=== PATIENT | female | born 1990 | race African-American/Black ===

== ENCOUNTER 2018-03-05 03:52 | Inpatient (IN) | payer OTHER ==
[2018-03-05 04:20] VITALS: BMI 29.8
[2018-03-05] MEDS ORDERED: Lactated Ringer's 1,000 ML IV SCH (05:14)
[2018-03-05] MEDS ORDERED: Ondansetron HCl/PF 4 MG/2 ML Vial IVP PRN ×3 (05:14→13:48)
[2018-03-05] MEDS ORDERED: Promethazine HCl 25 MG/ML VIAL IM PRN ×2 (05:14→07:57)
[2018-03-05] MEDS ORDERED: Butorphanol Tartrate 1 MG/ML VIAL SLOW IVP PRN (05:14)
[2018-03-05] MEDS ORDERED: Acetaminophen 500 MG TAB PO PRN (05:14)
[2018-03-05] MEDS ORDERED: Lactated Ringer's 1,000 ML IV PRN (05:14)
[2018-03-05] MEDS ORDERED: Penicillin G Potassium 5 MILL.UNITS in Sodium Chloride 0.9% 100 ML IVPB SCH (05:30)
[2018-03-05] MEDS ORDERED: DISCONTINUE ALL PREVIOUS NARCOTICS FS SCH (06:15)
[2018-03-05] MEDS ORDERED: Bupivacaine 0.5% 20 ML, fentaNYL Citrate/PF 400 MCG in Sodium Chloride 0.9% 72 ML EPIDURAL SCH (06:15)
[2018-03-05 06:51] LABS: Hemoglobin 12.1 g/dL (12.0-16.0); Mean Corpuscular HGB CONC 34.5 g/dL (32.0-36.0); Mean Corpuscular Hemoglobin 32.6 pg (27.0-31.0); Mean Corpuscular Volume 94.4 fL (78.0-98.0); Mean Platelet Volume 7.7 fL (7.4-10.4); Platelet Count 190 thou/uL (130-400); RBC Distribution Width 12.4 % (11.5-14.5); Red Blood Cell (RBC) Count 3.71 mill/uL (4.20-5.40); White Blood Cell (WBC) Count 10.2 thou/uL (4.8-10.8)
[2018-03-05 06:57] LABS: Syphilis Antibody Nonreactive (Nonreactive); Syphilis Antibody Index 0.08 S/CO (<1.00 Non-Reactive)
[2018-03-05 07:25] LABS: HBSAg Index 0.15 S/CO (0-0.99); Hep B Surf Ag Non-Reactive S/CO (NonReactive)
[2018-03-05] MEDS ORDERED: diphenhydrAMINE 50 MG/ML VIAL IVP PRN (07:57)
[2018-03-05] MEDS ORDERED: Naloxone HCl 0.4 mg/ml Vial IVP PRN ×2 (07:57)
[2018-03-05] MEDS ORDERED: Lactated Ringer's 500 ML IV PRN (07:57)
[2018-03-05] MEDS ORDERED: ePHEDrine/0.9% NaCl/PF SYRINGE 50 mg/10 ml SLOW IVP PRN (07:57)
[2018-03-05] MEDS ORDERED: Acetaminophen 325 MG TAB PO PRN (07:57)
[2018-03-05] MEDS ORDERED: Eucerin (Mineral Oil/Petrolatum,White) 30 gm Jar TOP PRN (07:57)
[2018-03-05] MEDS ORDERED: Communication Order-Pharmacy FS SCH (08:00)
[2018-03-05] MEDS ORDERED: fentaNYL Citrate/PF 400 MCG, Bupivacaine 0.5% 20 ML in Sodium Chloride 0.9% 72 ML EPIDURAL SCH (08:00)
[2018-03-05] MEDS ORDERED: NS / Oxytocin 40 units/1000ml 1,000 ML ONE ×2 (09:14→12:16)
[2018-03-05] MEDS ORDERED: Lidocaine 1% (PF) 30 ML VIAL ONE (09:14)
[2018-03-05] MEDS ORDERED: Penicillin G 2.5 MILL.units 50 ML ONE (09:27)
[2018-03-05] MEDS ORDERED: Penicillin G Potassium 2.5 MILL.UNITS in Sodium Chloride 0.9% 50 ML IVPB SCH (09:30)
[2018-03-05] MEDS ORDERED: Lidocaine 2% PF Inj 2 ML VIAL ONE (11:11)
[2018-03-05] MEDS ORDERED: Bisacodyl 10 MG SUPP PR PRN (13:48)
[2018-03-05] MEDS ORDERED: Benzocaine/Menthol 20-0.5% 60 ML CAN TOP PRN (13:48)
[2018-03-05] MEDS ORDERED: Preparation H Ointment 28 GM TUBE PR PRN (13:48)
[2018-03-05] MEDS ORDERED: NS / Oxytocin 40 units/1000ml 1,000 ML IV SCH (13:48)
[2018-03-05] MEDS ORDERED: HYDROcodone/Acetaminophen 5/325 mg Tablet PO PRN ×2 (13:48)
[2018-03-05] MEDS ORDERED: diphenhydrAMINE 25 MG CAP PO PRN (13:48)
[2018-03-05] MEDS ORDERED: Milk Of Magnesia 30 ML UDCUP PO PRN (13:48)
[2018-03-05] MEDS ORDERED: Lanolin Ointment 7 GM TUBE TOP PRN (13:48)
[2018-03-05] MEDS: Ibuprofen 800 MG TAB PO SCH ×2 (14:34→21:32)
[2018-03-05] MEDS: Ferrous Sulfate 325 MG TAB PO SCH (14:47)
[2018-03-05] MEDS: Docusate Calcium (SURFAK) 240 MG CAP PO SCH (21:32)
[2018-03-06] MEDS: Ibuprofen 800 MG TAB PO SCH ×2 (05:06→13:57)
[2018-03-06 05:50] LABS: Hemoglobin 10.3 g/dL (12.0-16.0); Mean Corpuscular HGB CONC 33.7 g/dL (32.0-36.0); Mean Corpuscular Hemoglobin 32.3 pg (27.0-31.0); Mean Corpuscular Volume 95.7 fL (78.0-98.0); Platelet Count 195 thou/uL (130-400); RBC Distribution Width 12.6 % (11.5-14.5); White Blood Cell (WBC) Count 12.4 thou/uL (4.8-10.8)
[2018-03-06] MEDS ORDERED: Prenatal Vitamin 1 TAB PO SCH (09:00)
[2018-03-06] MEDS: Ferrous Sulfate 325 MG TAB PO SCH ×2 (09:02→09:30)
[2018-03-06 09:16] VITALS: BP 105/57; TEMP 97.9
[2018-03-06] MEDS: Docusate Calcium (SURFAK) 240 MG CAP PO SCH (09:32)
== END 2018-03-06 18:30 | disposition home or self-care (01) | DRG 775 ==
LOC: L&D/OP 03:52 → L&D 04:42 → 3SW 14:10
PROVIDERS: ADMIT Family Medicine; ATTEND Family Medicine
PROC: 10E0XZZ Delivery of Products of Conception, External Approach (ICD-10-PCS; principal; 2018-03-05)
PROC: 10907ZC Drainage of Amniotic Fluid, Therapeutic from Products of Conception, Via Natural or Artificial Opening (ICD-10-PCS; 2018-03-05)
DX: O99.824 Streptococcus B carrier state complicating childbirth (principal); Z37.0 Single live birth; Z3A.40 40 weeks gestation of pregnancy
CPT/HCPCS: 36415; 51702; 85027; 86762; 86780; 86850; 86900; 86901; 87340; 99285; J2001; J2540; J3010; J3490; J7050